=== PATIENT | female | born 1975 | race Hispanic/Latino ===

== ENCOUNTER 2022-01-05 12:56 | Emergency (ER) | payer BC, OTHER ==
[~2022-01-05] VITALS: Ht 165.1 cm; Wt 83.2 kg
[2022-01-05] MEDS ORDERED: ACETAMINOPHEN500 MG PO (13:54)
[2022-01-05] MEDS ORDERED: IBUPROFEN200 MG PO (13:54)
== END 2022-01-05 14:12 | disposition home or self-care (01) ==
LOC: FSED 13:33
DX: S63.592A Other specified sprain of left wrist, initial encounter (principal); M25.562 Pain in left knee; W18.39XA Other fall on same level, initial encounter; Y92.89 Other specified places as the place of occurrence of the external cause; F17.210 Nicotine dependence, cigarettes, uncomplicated
CPT/HCPCS: 99283

== ENCOUNTER 2022-03-10 13:07 | Emergency (ER) | payer BC, OTHER ==
[~2022-03-10] VITALS: Ht 165.1 cm; Wt 77.1 kg
[~2022-03-10 13:07] MED LIST: ACETAMINOPHEN500 MG PO; IBUPROFEN200 MG PO
[2022-03-10] MEDS ORDERED: CYCLOBENZAPRINE5 MG PO ×2 (13:35→15:20)
== END 2022-03-10 14:02 | disposition home or self-care (01) ==
LOC: FSED 13:33
DX: R07.89 Other chest pain (principal); W22.8XXA Striking against or struck by other objects, initial encounter; Y92.89 Other specified places as the place of occurrence of the external cause; F17.210 Nicotine dependence, cigarettes, uncomplicated
CPT/HCPCS: 99282